=== PATIENT | female | born 1970 | race Caucasian/White ===

== ENCOUNTER 2018-10-06 19:41 | Emergency (ER) | payer MEDICAID ==
[~2018-10-06] VITALS: Ht 162.6 cm; Wt 70.0 kg
[2018-10-07] MEDS ORDERED: DIVALPROEX SODIUM 250MG ER TABLET PO ONE (03:15)
[2018-10-07] MEDS ORDERED: QUETIAPINE FUMARATE 100MG TABLET PO SCH (03:15)
[2018-10-07 03:28] LABS: EOSINOPHILS % 0.6 % (0.0-5.0); HEMATOCRIT. 40.2 % (36.0-48.0); HEMOGLOBIN. 13.6 g/dL (12.0-16.0); LYMPHOCYTES % 37.2 % (20.0-50.0); MEAN CORPUSCULAR HEMOGLOBIN 29.6 pg (28.0-32.0); MEAN CORPUSCULAR VOLUME 87.3 fL (81.0-99.0); MEAN PLATELET VOLUME 8.6 fl (7.4-10.4); MONOCYTES % 6.3 % (2.0-8.0); NEUTROPHILS % 54.9 % (40.0-76.0); PLATELET 197 x1000/uL (130-400); RED BLOOD CELL COUNT 4.61 mill/uL (4.2-5.4); RED CELL DISTRIBUTION WIDTH 13.7 % (11.6-14.6)
[2018-10-07 03:32] LABS: CHLORIDE 103 mEq/L (98-107)
[2018-10-07 03:33] LABS: *BARBITURATES SCREEN URINE NEGATIVE (NEGATIVE); *BENZODIAZEPINES SCREEN URINE NEGATIVE (NEGATIVE); *COCAINE SCREEN URINE NEGATIVE (NEGATIVE); METHADONE URINE SCREEN NEGATIVE (NEGATIVE); OPIATES URINE SCREEN NEGATIVE (NEGATIVE)
[2018-10-07 03:34] LABS: PHENCYCLIDINE URINE SCREEN NEGATIVE (NEGATIVE)
[2018-10-07 03:36] LABS: ETHANOL BLOOD < 10 mg/dL
[2018-10-07 04:10] LABS: *AMPHETAMINES SCREEN URINE PRESUMTIVE POSITIVE (NEGATIVE); CANNABINOID URINE SCREEN PRESUMTIVE POSITIVE (NEGATIVE)
[2018-10-07 18:48] VITALS: BP 136/78
== END 2018-10-07 18:50 | disposition home or self-care (01) ==
LOC: ER 20:20
DX: F31.9 Bipolar disorder, unspecified (principal); T43.621A Poisoning by amphetamines, accidental (unintentional), initial encounter; F41.9 Anxiety disorder, unspecified; F12.90 Cannabis use, unspecified, uncomplicated; R56.9 Unspecified convulsions; F15.10 Other stimulant abuse, uncomplicated; F60.9 Personality disorder, unspecified; Z88.2 Allergy status to sulfonamides; Z76.0 Encounter for issue of repeat prescription; Y92.89 Other specified places as the place of occurrence of the external cause
CPT/HCPCS: 36415; 80048; 80305; 80307; 80320; 80329; 85025; 99283; Z7610; G0480